=== PATIENT | female | born 1945 | race Caucasian/White ===

== ENCOUNTER 2018-12-09 20:23 | Emergency (ER) | payer SELFPAY ==
[2018-12-09] MEDS ORDERED: DILTIAZEM 25MG/5ML VIAL IV ONE (20:26)
[2018-12-09] MEDS ORDERED: FUROSEMIDE IV 20MG/2ML VIAL IVP ONE (20:26)
[2018-12-09] MEDS ORDERED: IPRATROPIUM/ALBUTEROL (0.5MG/3MG) NEB INH ONE (20:26)
[2018-12-09] MEDS ORDERED: DILTIAZEM HCL 125 MG in 0.9 % SODIUM CHLORIDE 100ML 100 ML IV SCH (20:30)
--- NOTE | 2018-12-09 20:33 | Emergency Department Record ---
History of Present Illness - General Chief Complaint: Shortness of breath Stated Complaint: LOCO,AFIB Time Seen by Provider: 12/09/18 20:25 Source: Patient, EMS Mode of Arrival: Stretcher Limitations: No limitations - History of Present Illness Initial Comments: 73 yo female presents with shortness of breath and palpitations for the last two days. She has a history of atrial fibrillation and CHF. She is a smoker as well. She denies any chest pain. The symptoms have come over the last two days. She is not on home oxygen. She reports she has been cardioverted in the past. She has had some loose darker stools for about three days. She gets etienne rt of breath with walking around but better if sitting. Dr Carroll is her PCP. Dr Hernandez is her palm and back forger. She is on Xarelto and she believes she is chronically in atrial fibrillation. MD Complaint: Shortness of breath -: Days(s) Radiation: Other (No chest pain) Severity: Moderate Quality: Other Consistency: Constant Improves With: Rest Worsens With: Exertion Associated Symptoms: Cough Treatments Prior to Arrival: Other - Related Data Home Oxygen Therapy: No Allergies Allergy/AdvReac Type Severity Reaction Status Date / Time No Known Drug Allergies Allergy Verified 12/09/18 20:33 Review of Systems Constitutional: Reports: Malaise, Weakness. Denies: Chills, Fever Eyes: Denies: Eye discharge, Eye pain, Photophobia, Vision change ENT: Denies: Congestion, Throat pain Respiratory: Reports: Dyspnea, Wheezes. Denies: Cough, Hemoptysis, Stridor Cardiovascular: Reports: Dyspnea on exertion, Palpitations. Denies: Chest pain, Edema, Syncope Endocrine: Reports: Fatigue. Denies: Polydipsia, Polyuria Gastrointestinal: Denies: Abdominal pain, Diarrhea, Nausea Genitourinary: Denies: Dysuria, Urgency Musculoskeletal: Denies: Arthralgia, Back pain, Myalgia Skin: Denies: Bruising, Change in color, Rash Neurological: Denies: Headache, Weakness Psychiatric: Denies: Anxiety Hematological/Lymphatic: Denies: Easy bleeding, Easy bruising Physical Exam - General General Appearance: Alert, Oriented x3, Cooperative, No acute distress, Other (Appears relaxed. No distress. Minimal conversational dyspnea) Limitations: No limitations - Head Head exam: Atraumatic, Normal inspection - Eye Eye exam: Normal appearance. negative: Conjunctival injection - ENT ENT exam: Normal exam, Mucous membranes moist Ear exam: Normal external inspection Nasal Exam: Normal inspection Mouth exam: Normal external inspection - Neck Neck exam: Normal inspection, Full ROM. negative: Tenderness - Respiratory Respiratory exam: Accessory muscle use (mild), Decreased breath sounds, Rales ( in bases), Wheezes. negative: Normal lung sounds bilaterally, Prolonged expiratory, Respiratory distress - Cardiovascular Cardiovascular Exam: Irregular rhythm, Tachycardia. negative: Regular rate, Normal rhythm Peripheral Pulses: 2+: Radial (R), Radial (L) - GI/Abdominal GI/Abdominal exam: Soft. negative: Tenderness - Rectal Rectal exam: Deferred - exam: Deferred - Extremities Extremities exam: Normal inspection, Full ROM. negative: Calf tenderness, Pedal edema, Tenderness - Back Back exam: Denies: CVA tenderness (R), CVA tenderness (L) - Neurological Neurological exam: Alert, Oriented X3. negative: Altered - Psychiatric Psychiatric exam: Normal affect, Normal mood. negative: Agitated, Anxious - Skin Skin exam: Dry, Intact, Normal color, Warm. negative: Cyanosis, Diaphoretic, Mottled Course - Reevaluation(s) Reevaluation #1: 12/09/18 20:35 EKG EKG #1: 20:28 Rate: 141 Rhythm: atrial fibrillation [place]: normal Intervals: normal ST segments: NS lateral changes Prior: 07/04/17 12/09/18 20:36 12/09/18 20:49 The patient is sitting comfortable. Her work of breathing is mild. She improved with a Duoneb. Her BP is 84 systolic. She will be given Digoxin load, low dose drip of Cardizem. 2nd line placed. 12/09/18 21:09 Lab called. Hgb is 6.4 Given her BP and low Hgb A unit of O negative ordered for the anemia 12/09/18 21:14 CR is 2.8 BUN is 109 12/09/18 21:15 [facility] called for transfer. Awaiting call back 12/09/18 21:16 CXR reviewed. Mild PVC> 12/09/18 21:19 Dr Edmond accepts the patient for transfer to [facility] 12/09/18 21:52 CXR read as upper lobe nodule. Recommend follow up CT to rule out mass The patient was informed of the need to follow up this finding after the acute treatment of her current condition. 12/09/18 21:53 Troponin 0.01 12/09/18 The patient tolerated the transfusion in the ED Multiple rechecks. Respiratory status improved. BP mild improvement to low 100's EMS ready for stable transfer 12/09/18 23:20 Medical Decision Making - Lab Data Result diagrams: 12/09/18 20:50 12/09/18 20:50 Critical Care Time Critical Care Time: Yes (95) Total Critical Care Time: 95 Disposition Disposition: Transfer Clinical Impression: Atrial fibrillation with RVR, Renal insufficiency GI bleed Qualifiers: GI bleed type/associated pathology: unspecified gastrointestinal hemorrhage type Qualified Code(s): K92.2 - Gastrointestinal hemorrhage, unspecified Disposition: Acute Care Hospital Transfer Transfer To: [facility] Reason For Transfer: AFIB with RVR Accepting Physician: Mayito Time Discussed w/Accepting Physician: 21:19 Condition: (3) Guarded Forms: Patient Portal Access Time of Disposition: 21:19 Quality - Quality Measures Quality Measures: N/A - Blood Pressure Screening Does Patient Have Any of the Following: Active Dx of HTN Blood Pressure Classification: Normal BP Reading Systolic Measurement: 88 Diastolic Measurement: 54 Screening for High Blood Pressure: Patient Exclusion, Hx of HTN [G9744]
[2018-12-09] MEDS ORDERED: ALBUTEROL SULFATE (0.083%) 2.5 MG/3 ML NEB INH ONE (20:42)
[2018-12-09] MEDS ORDERED: ALBUTEROL (0.5% CONCENTRATED) 2.5 MG/0.5 ML VIAL.NEB INH ONE (20:42)
[2018-12-09] MEDS ORDERED: DIGOXIN 500MCG/2ML AMP IVP ONE ×2 (20:43→20:45)
[2018-12-09] MEDS ORDERED: CALCIUM GLUCONATE 1,000 MG in 0.9 % SODIUM CHLORIDE 100ML 100 ML IV ONE (20:46)
[2018-12-09 21:05] LABS: ABSOLUTE NEUTROPHIL COUNT 9.46; HEMATOCRIT 22.2 % (35.0-47.0); MEAN CORPUSCULAR HGB CONC 28.8 g/dl (32-36); MEAN PLATELET VOLUME 10.7 fl (7.4-10.4); PLATELET COUNT 302 K/uL (130-400); RED BLOOD COUNT 2.81 M/uL (3.80-5.40); RED CELL DISTRIBUTION WIDTH 21.4 % (11.5-14.5); WHITE BLOOD COUNT W/O DIFF 11.2 K/uL (4.2-12.2)
[2018-12-09 21:07] LABS: BLOOD UREA NITROGEN 109 mg/dL (8-23); CREATININE 2.8 mg/dL (0.5-0.9); EST GLOMERULAR FILTRATION RATE 18 mL/min
[2018-12-09 21:08] LABS: MEAN CORPUSCULAR HEMOGLOBIN 22.7 pg (27-33); TOTAL PROTEIN 6.3 g/dL (6.6-8.7)
[2018-12-09 21:10] LABS: GLUCOSE,RANDOM 146 mg/dL (74-109)
[2018-12-09 21:11] LABS: PARTIAL THROMBOPLASTIN TIME 24.7 SECONDS (24.5-39.1); PROTHROMBIN TIME (PATIENT) 10.5 SECONDS (9.5-12.1)
[2018-12-09 21:12] LABS: ALT/SGPT 6 U/L (<33); AST/SGOT 13 U/L (10.0-35.0)
[2018-12-09 21:13] LABS: ALB/GLOB RATIO 1.3 (1.1-1.8); ALBUMIN 3.6 g/dL (4.0-5.0); ALKALINE PHOSPHATASE 53 U/L (35-104)
[2018-12-09] MEDS ORDERED: NOREPINEPHRINE BITARTRATE 4 MG in DEXTROSE 5 % IN WATER 250 ML IV SCH ×2 (21:15)
[2018-12-09 22:58] LABS: ABO GROUP A; ANTIBODY SCREEN NEGATIVE (NEGATIVE); RH TYPE POSITIVE
[2018-12-09 23:15] LABS: ANISOCYTOSIS 2+; HYPOCHROMIA 1+; MICROCYTOSIS 1+; PLATELET ESTIMATE NORMAL (NORMAL)
[2018-12-09 23:56] LABS: IMMED. SPIN CROSSMATCH COMPATIBLE
--- NOTE | 2018-12-10 13:26 | RADIOLOGY REPORT ---
EXAM: CHEST, SINGLE VIEW HISTORY: CHF AND DYSPNEA. ATRIAL FIBRILLATION. TECHNIQUE: A single view of the chest was obtained. FINDINGS: Telemetry leads overlie the chest. There is mild enlargement of the cardiomediastinal silhouette. There appear to be calcified granulomata within the lungs. No clear focal consolidation or pleural effusion. Opacity within the right lung apex is noted. Mass in this region not excluded. IMPRESSION: 1. BORDERLINE CARDIOMEGALY. 2. CALCIFIED GRANULOMATA. 3. RIGHT APICAL OPACITY, MASS NOT EXCLUDED. RECOMMEND COMPARISON WITH PREVIOUS IMAGES IF AVAILABLE, OTHERWISE FOLLOW-UP WITH CHEST CT WOULD BE RECOMMENDED. JOB NUMBER: [id number] [facility]
== END 2018-12-09 22:05 | disposition short-term general hospital (02) ==
LOC: ER 20:23
DX: I48.2 Chronic atrial fibrillation (principal); Z79.01 Long term (current) use of anticoagulants; F17.210 Nicotine dependence, cigarettes, uncomplicated; D62 Acute posthemorrhagic anemia; I10 Essential (primary) hypertension; I50.9 Heart failure, unspecified
CPT/HCPCS: 36430; 71045; 80053; 83880; 84484; 85027; 85610; 85730; 86850; 86900; 86901; 93005; 93010; 93041; 94640; 94664; 96365; 96366; 96375; 99285; J1940